=== PATIENT | male | born 1990 | race Caucasian/White ===

== ENCOUNTER 2017-10-21 12:02 | Emergency (ER) | payer OTHER ==
[2017-10-21 12:16] VITALS: BP 149/99; PULSE 101; TEMP 97.8; BMI 38.7
--- NOTE | 2017-10-21 12:18 | PDOC ---
History of Present Illness - General Chief Complaint: Pain, Acute Stated Complaint: left upper abd pain Time Seen by Provider: 10/21/17 12:17 History Source: Patient Exam Limitations: No Limitations - History of Present Illness Initial Comments: 10/21/17 12:32 Pt presents to the ED complaining of the acute onset of LUQ pain yesterday. Denies fever, nausea or vomiting. Denies changes in bowel habits. Pain is constant, 6-7 in severity and non radiating. pain is worse with lying down and relieved with sitting up or standing up. Patient denies any injures to his abdomen. 10/21/17 12:36 Denies cough or urinary complaints. Denies testicular complaints. 10/21/17 12:37 Timing/Duration: 24 hours Severity: moderate Past History - Past Medical History Allergies/Adverse Reactions: Allergies Allergy/AdvReac Type Severity Reaction Status Date / Time Apples, cherries Allergy Difficulty Uncoded 10/21/17 12:03 swallowing, throat & mouth itch COPD: No - Surgical History Abdominal Surgery: Yes (donated liver to father 8 years ago) - Suicide/Smoking/Psychosocial Hx Smoking History: Current every day smoker Number of Cigarettes Smoked Daily: 8 Information on smoking cessation initiated: Yes 'Breaking Loose' booklet given: 10/21/17 Hx Alcohol Use: Yes Drug/Substance Use Hx: No Substance Use Type: Alcohol Review of Systems - Review of Systems Able to Perform ROS?: Yes Is the patient limited Malian proficient: No Constitutional: No: Symptoms Reported, See HPI, Chills, Diaphoresis, Fever, Loss of Appetite, Malaise, Night Sweats, Weakness, Weight Stable, Unintentional Wgt. Loss, Unexplained wgt Loss, Other HEENTM: No: Symptoms Reported, See HPI, Eye Pain, Blurred Vision, Tearing, Recent change in vision, Double Vision, Cataracts, Ear Pain, Ocular Prothesis, Ear Discharge, Nose Pain, Nose Congestion, Tinnitus, Nose Bleeding, Hearing Loss , Throat Pain, Throat Swelling, Mouth Pain, Dental Problems, Difficulty Swallowing, Mouth Swelling, Other Respiratory: No: Symptoms reported, See HPI, Cough, Orthopnea, Shortness of Breath, SOB with Exertion, SOB at Rest, Stridor, Wheezing, Productive cough, Hemoptysis, Other Cardiac (ROS): No: Symptoms Reported, See HPI, Chest Pain, Edema, Irregular Heart Rate, Lightheadedness, Palpitations, Syncope, Chest Tightness, Other ABD/GI: Yes: See HPI. No: Symptoms Reported, Abdominal Distended, Abd. Pain w/ defecation, Blood Streaked Bowels, Constipated, Diarrhea, Difficulty Swallowing , Nausea, Poor Appetite, Poor Fluid Intake, Rectal Bleeding, Vomiting, Indigestion, Abdominal cramping, Tarry Stools, Other : No: Symptoms Reported, See HPI, Burning, Dysuria, Discharge, Frequency, Flank Pain, Hematuria, Incontinence, Pain, Urgency, Testicular Mass, Testicular Swelling, Lesions, Testicular Pain, Other Musculoskeletal: No: Symptoms Reported, See HPI, Back Pain, Gout, Joint Pain, Joint Swelling, Muscle Pain, Muscle Weakness, Neck Pain, Joint Stiffness, Other Integumentary: No: Symptoms Reported, See HPI, Bruising, Change in Color, Change in Hair/Nails, Dryness, Erythema, Flushing, Lesions, Lumps, Pallor, Pruritus, Rash, Sweating, Other Neurological: No: Symptoms reported, See HPI, Headache, Numbness, Paresthesia, Pre-Existing Deficit, Seizure, Tingling, Tremors, Weakness, Unsteady Gait, Ataxia, Dizziness, Other Hematologic/Lymphatic: No: Symptoms Reported, See HPI, Anemia, Blood Clots, Easy Bleeding, Easy Bruising, Bleeding Diathesis, Lymph Node Abnormalities, Swollen Glands, Other All Other Systems: Reviewed and Negative *Physical Exam - Vital Signs Last Vital Signs Temp Pulse Resp BP Pulse Ox 97.8 F 101 H 18 149/99 100 10/21/17 12:10/21/17 12:10/21/17 12:10/21/17 12:10/21/17 12:03 - Physical Exam General Appearance: Yes: Nourished, Appropriately Dressed. No: Apparent Distress, Disheveled, Mild Distress, Moderate Distress, Severe Distress, Alcohol on Breath, Intoxicated, Cachetic, Obese, Thin, Other HEENT: positive: Normal ENT Inspection Neck: positive: Supple Respiratory/Chest: positive: Lungs Clear, Normal Breath Sounds. negative: Chest Tender, Respiratory Distress, Accessory Muscle Use, Labored Respiration, Rapid RR, Decreased Breath Sounds, Paradoxal Breathing, Crackles, Rales, Rhonchi , Stridor, Wheezing, Hyperresonant, Dullness, Plerual Rub, Other Cardiovascular: positive: Regular Rhythm, Regular Rate, S1, S2. negative: Edema , JVD, Murmur, Bradycardia, Tachycardia, Diastolic Murmur, Systolic Murmur, Gallop/S3, Gallop/S4, Irregularly Irregular, Irregular, Other Gastrointestinal/Abdominal: positive: Tender (tender in the LUQ without guarding or rebound), Tenderness. negative: Normal Bowel Sounds, Flat, Soft, Organomegaly, Pulsatile Mass, Increased Bowel Sounds, Decreased BS, Protuberent , Distended, Guarding, Rebound, Hernia, Mass, Hepatomegaly, Spleenomegaly, Other Rectal Exam: negative: heme negative stool, normal exam, NL Prostate, normal rectal tone, deferred, melena, decreased tone, heme positive stool, hemorrhoids , other Musculoskeletal: negative: Normal Inspection, CVA Tenderness, CVA Tenderness (R) , CVA Tenderness (L), Decreased Range of Motion, Muscle Spasm, Vertebral Tenderness, Other Extremity: negative: Normal Capillary Refill, Normal Inspection, Normal Range of Motion, Tender, Pelvis Stable, Coldness, Cyanosis, Delayed Capillary Refill, Pedal Edema, Swelling, Calf Tenderness, Erythema, Inflammation, Other Integumentary: positive: Normal Color, Dry, Warm 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 Denies nausea, vomiting fever, urinary or genital complaints. On exam, he is well appearing, but is quite tender in the LUQ. Concern for splenic lesion, muscular pain, less likely PNA or renal stone. Will check labs, UA, abdominal US. Will re-evaluate. 10/21/17 14:21 US 10/21/17 14:22 Pt feels improved after toradol. Us is somewhat limited by patient size, but spleen and left kidney are clearly visualized with no acute findings. LAbs show no evidence of infection. Will discharge patient home with instructions to return to the ED For worsening symptoms. *DC/Admit/Observation/Transfer Diagnosis at time of Disposition: Abdominal pain Qualifiers: Abdominal location: left upper quadrant Qualified Code(s): R10.12 - Left upper quadrant pain - Discharge Dispostion Disposition: HOME Condition at time of disposition: Good Admit: No - Referrals - Patient Instructions Printed Discharge Instructions: DI for Abdominal Pain-Adult Additional Instructions: return to the ED for severe pain, pain with fever, nausea and vomiting, if unable to eat or have a bowel movement, other new or worsening symptoms. - Post Discharge Activity
[2017-10-21 13:09] LABS: BASO % 1.8 % (0-2.0); EOS % 5.5 % (0-4.5); HEMATOCRIT 49.1 % (35.4-49); HEMOGLOBIN 16.9 GM/dl (11.7-16.9); LYMPH % 28.4 % (8-40); MCH 30.6 pg (25.7-33.7); MCHC 34.4 g/dl (32.0-35.9); MEAN CELL VOLUME 88.9 fl (80-96); MEAN PLT VOLUME 8.5 fl (7.5-11.1); MONO % 5.8 % (3.8-10.2); NEUT % 58.5 % (42.8-82.8); PLATELET COUNT 309 K/MM3 (134-434); RBC 5.52 M/mm3 (4.00-5.60); RDW 12.8 % (11.9-15.9); WHITE BLOOD COUNT 8.4 K/mm3 (4.0-10.8)
[2017-10-21 13:21] LABS: ALBUMIN 4.5 g/dl (3.5-5.0); ALK PHOS 57 U/L (32-92); ANION GAP 10 (8-16); BILIRUBIN,TOTAL 1.1 mg/dl (0.2-1.0); BLOOD UREA NITROGEN 10 mg/dl (7-18); CALCIUM 9.8 mg/dl (8.4-10.2); CHLORIDE 99 mmol/L (98-107); CO2 25 mmol/L (22-28); CREATININE 0.8 mg/dl (0.6-1.3); GLUCOSE,RANDOM 93 mg/dl (74-106); POTASSIUM 4.4 mmol/L (3.5-5.1); SGOT/AST 62 U/L (10-42); SGPT/ALT 78 U/L (10-40); SODIUM 134 mmol/L (136-145); TOT PROT 7.6 g/dl (6.4-8.3)
[2017-10-21] MEDS ORDERED: KETOROLAC TROMETHAMINE 60 MG/2 ML VIAL IM ONE (13:48)
[2017-10-21] MEDS ORDERED: KETOROLAC TROMETHAMINE 60 MG/2 ML VIAL ONE (13:49)
== END 2017-10-21 14:30 | disposition home or self-care (01) ==
LOC: FER 12:02
PROC: 3E0233Z Introduction of Anti-inflammatory into Muscle, Percutaneous Approach (ICD-10-PCS; principal; 2017-10-21)
DX: R10.12 Left upper quadrant pain (principal); F17.210 Nicotine dependence, cigarettes, uncomplicated
CPT/HCPCS: 36415; 71046-TC-FY; 76700-TC; 80053; 85025; 99282-25

== ENCOUNTER 2020-09-23 17:55 | Emergency (ER) | payer OTHER | END 2020-09-23 18:28 | disposition home or self-care (01) | LOC: JVIRT 17:55 | DX: R51.9 Headache, unspecified (principal); Z11.52 Encounter for screening for COVID-19 | CPT/HCPCS: C9803; G2012-GT; U0003 ==